=== PATIENT | female | born 1985 | race Caucasian/White ===

== ENCOUNTER 2019-04-10 12:12 | Emergency (ER) | payer OTHER ==
[~2019-04-10] VITALS: Ht 175.3 cm; Wt 113.4 kg
--- NOTE | 2019-04-10 12:12 | NUR ---
Patient BIBA ALS accompanied by Molly singh 101, transferred to bed 7. RN evaluating patient at bedside.
[2019-04-10 12:18] VITALS: BP 92/59
--- NOTE | 2019-04-10 12:33 | NUR ---
STABLE ACCUCHECK. PT PLACED IN TRENDELENBERG POSITON FOR LOW BP
--- NOTE | 2019-04-10 12:34 | NUR ---
BROUGHT IN BY EMS FROM [facility]----DURING 10MINS OF CHEMO INFUSION, PT SYNCOPIZED. EMS FOUND PT TO BE HYPOTENSIVE, EMS ADMINISTERED APPROX 400 ML FLUIDS, BP NOW 92/59. IV ESTABLISHED IN FIELD. NO INJURY. PT CAN RECALL NAME AND BIRTHDATE. PT AWARE THAT SHE WAS IN TREATMENT BUT CANT RECALL SERIES OF EVENTS. PT RE-ORIENTED TO HOSPITAL. EQUAL ARM LOADER. PUPILS PERRL. PT CAN LIFT BILTERAL LE AND UE FROM BED. HX---DM, OVARIAN CA RX
[2019-04-10] MEDS ORDERED: NACL 0.9% 1,000 ML IV SCH (12:43)
--- NOTE | 2019-04-10 13:03 | NUR ---
LABS DRAWN BEDSIDE
[2019-04-10 13:18] LABS: BASOPHILS % (AUTO) 0.1 % (0.0-2.0); EOSINOPHILS % (AUTO) 0.1 % (0.0-4.0); HEMATOCRIT 37.6 % (36-48); HEMOGLOBIN 13.2 g/dL (12.0-16.0); LYMPHOCYTES # (AUTO) 1.1 K/uL (2.5-16.5); LYMPHOCYTES % (AUTO) 7.9 % (20.5-51.1); MEAN CORPUSCULAR HEMOGLOBIN 31 pg (27-31); MEAN CORPUSCULAR HGB CONC 35 g/dL (33-37); MEAN CORPUSCULAR VOLUME 88.7 fL (80-94); MONOCYTES # (AUTO) 0.1 K/uL (0.8-1.0); MONOCYTES % (AUTO) 0.8 % (1.7-9.3); NEUTROPHILS # (AUTO) 12.2 K/uL (1.8-7.7); NEUTROPHILS % (AUTO) 91.1 % (42.2-75.2); PLATELET COUNT (AUTO) 281 K/uL (140-450); RED BLOOD CELL COUNT(AUTO) 4.24 MIL/uL (4.20-5.40); RED CELL DISTRIBUTION WIDTH 13.1 % (11.6-13.7); WHITE BLOOD COUNT (AUTO) 13.4 K/uL (4.8-10.8)
--- NOTE | 2019-04-10 13:34 | NUR ---
PT PLACED ON BEDPAN
[2019-04-10 13:37] LABS: ALBUMIN 3.1 g/dL (3.4-5.0); ANION GAP 12.1 (8-16); CARBON DIOXIDE 25.3 mmol/L (21-32); CREATININE 0.8 mg/dL (0.6-1.3); POTASSIUM 3.4 mmol/L (3.5-5.1); TOTAL BILIRUBIN 0.5 mg/dL (0.0-1.0)
[2019-04-10 14:26] VITALS: BP 106/60
--- NOTE | 2019-04-10 14:26 | NUR ---
Patient discharged with v/s stable. Written and verbal after care instructions given and explained. Patient verbalized understanding. Ambulatory with to home. All questions addressed prior to discharge. Advised to follow up with PMD.
[2019-04-10 14:29] LABS: APPEARANCE,URINE CLEAR (CLEAR); BILIRUBIN,URINE NEGATIVE (NEGATIVE); BLOOD, URINE NEGATIVE (NEGATIVE); COLOR,URINE YELLOW (YELLOW); LEUKOCYTE ESTERASE ,URINE NEGATIVE (NEGATIVE); NITRITE, URINE NEGATIVE (NEGATIVE); PH,URINE 6.5 (5.0-9.0); UGLUCOSE NEGATIVE (NEGATIVE)
== END 2019-04-10 14:26 | disposition home or self-care (01) ==
LOC: MED 12:12
DX: R55 Syncope and collapse (principal); Z85.9 Personal history of malignant neoplasm, unspecified; Z98.890 Other specified postprocedural states
CPT/HCPCS: 36415; 71045; 80053; 81003; 81025; 83605; 83880; 84484; 85025; 87040; 87086; 93005; 96360; 99285; J7030; Q0092